=== PATIENT | female | born 1990 | race Caucasian/White ===

== ENCOUNTER 2018-11-17 13:00 | Outpatient (CLI) | payer BC ==
--- NOTE | 2018-11-17 15:48 | ULT ---
BILATERAL RENAL ULTRASOUND COMPLETE: HISTORY: Frequent micturition. FINDINGS: The right kidney measures 10.5 x 4.5 x 4.4 cm. The left kidney measures 9.7 x 5.5 x 4.8 cm. Urinary bladder pre-void volume equals 165 mL, and post-void volume approximates 6 mL. Slightly prominent r ight upper renal collecting system, which does not change significantly between pre-void and post-voi d. IMPRESSION: 1. Slight right upper renal collecting system fullness, which does not change between pre-void and p ost-void. 2. No significant post void residual. 3. No left renal hydronephrosis. POS: [facility]
== END 2018-11-17 13:01 | disposition home or self-care (01) ==
LOC: BICULT 13:00
PROVIDERS: ATTEND Urology
DX: R35.1 Nocturia (principal); R35.0 Frequency of micturition
CPT/HCPCS: 76770

== ENCOUNTER 2018-12-08 10:30 | Outpatient (CLI) | payer BC ==
[~2018-12-08 10:30] MED LIST: Iopamidol 300 61% 100 ML VIAL FS ONE
--- NOTE | 2018-12-08 12:42 | RAD ---
IVP: History: Urinary frequency. Nocturia. FINDINGS: [employer] shows a nonspecific bowel gas pattern. Radiopaque contraceptive device overlies the uterus. Phleboliths project over the pelvis. Early images show bilateral and symmetric nephrograms. Each renal collecting system, ureter and urina ry bladder are unremarkable. No dilation. Small to moderate amount of contrast material remains withi n the urinary bladder on the post void imaging. IMPRESSION: 1. No evidence of urinary tract obstruction. Small to moderate post void urinary bladder residual. Ca use is not evident. 2. IUD in place. POS: [facility]
== END 2018-12-08 10:31 | disposition home or self-care (01) ==
LOC: RAD 10:30
PROVIDERS: ATTEND Urology
DX: R35.0 Frequency of micturition (principal); R35.1 Nocturia; R33.9 Retention of urine, unspecified; Z97.5 Presence of (intrauterine) contraceptive device
CPT/HCPCS: 74410; Q9967